=== PATIENT | male | born 1970 | race Caucasian/White ===

== ENCOUNTER 2017-10-05 15:30 | Outpatient (CLI) | payer BC | END 2017-10-05 15:31 | disposition home or self-care (01) | LOC: BICMRI 15:30 | PROVIDERS: ATTEND Family Medicine | DX: M47.26 Other spondylosis with radiculopathy, lumbar region (principal); M51.16 Intervertebral disc disorders with radiculopathy, lumbar region | CPT/HCPCS: 72148 ==

== ENCOUNTER 2018-01-27 15:58 | Outpatient (CLI) | payer BC ==
[2018-01-27 17:21] LABS: Hemoglobin 15.1 g/dL (14.0-18.0); Mean Corpuscular HGB CONC 35.1 g/dL (32.0-36.0); Mean Corpuscular Hemoglobin 28.9 pg (27.0-31.0); Mean Corpuscular Volume 82.2 fL (78.0-98.0); Mean Platelet Volume 7.2 fL (7.4-10.4); Platelet Count 224 thou/uL (130-400); RBC Distribution Width 12.4 % (11.5-14.5); Red Blood Cell (RBC) Count 5.23 mill/uL (4.70-6.10)
[2018-01-27 17:30] LABS: PTT 26.2 SEC (22.9-36.1); Prothrombin Time 13.4 SEC (12.0-14.7)
== END 2018-01-27 15:59 | disposition home or self-care (01) ==
LOC: LABBT 15:58
PROVIDERS: ATTEND Neurological Surgery
DX: Z01.812 Encounter for preprocedural laboratory examination (principal); M51.26 Other intervertebral disc displacement, lumbar region
CPT/HCPCS: 85027; 85610; 85730

== ENCOUNTER 2018-01-28 09:56 | Day surgery (SDC) | payer BC ==
[2018-01-27 16:16] VITALS: BMI 29.5
--- NOTE | 2018-01-28 09:01 | HP ---
CHIEF COMPLAINT: Neck pain. HISTORY OF PRESENT ILLNESS: Mr. Fernandes is a 47-year-old male who presents to our office with low back pain and radiating pain to the left buttock and numbness, tingling into the left L5 dermatome. He has had his pain since 04/2017 that came on spontaneously. The pain has caused him much discomfort in his job and is affecting his daily life. He has good strength in bilateral EHL and TA. He is able to walk with analgesic gait. He has not had any physical therapy; however, he has had some injections and has been started on Lyrica. Patient states that he has modified his activity and still has the pain on the left side. Patient states that at the end of the workday, it is the worse quality of life, is not improving. The patient denies any bowel or bladder incontinence. REVIEW OF SYSTEMS: Ten point review of systems has been completed and is otherwise negative as stated above in the HPI. PAST MEDICAL HISTORY: Allergic rhinitis, sinus infections, hyperlipidemia, kidney function decline, GFR in the 60s in 2017, radiculopathy and compression on MRI. SURGICAL HISTORY: Left knee surgery, sinus surgery. FAMILY HISTORY: Father is at age 82 diagnosed with high blood pressure and cancer. Mother is at 68 diagnosed with high blood pressure, heart disease, stroke, and cancer. Siblings are alive. Children are alive. SOCIAL HISTORY: The patient is a nonsmoker, uses alcohol occasionally and does not use any other illicit drugs. He is , sexually active with his . Drinks caffeine regularly, ice tea and occupation, [employer]. MEDICATIONS: Flonase, loratadine, atorvastatin, calcium, Ambien, prednisone, meloxicam, and tramadol. ALLERGIES: No known drug allergies. PHYSICAL EXAMINATION: HEAD EARS, NOSE AND THROAT: Normocephalic, atraumatic. Hearing is intact. Moist mucous membranes. Trachea is midline. No masses noted. EYES: Pupils are equal, round, reactive to light. Extraocular movements are intact. Sclerae is not injected. No icterus. PSYCHIATRIC: Normal mood and affect. PULMONARY: Normal work of breathing room air. CARDIOVASCULAR: Regular rate and rhythm. MUSCULOSKELETAL: Lower extremities, 5/5 strength, bilateral iliopsoas, quadriceps, hamstrings, right tibialis anterior, and EHL. Sensory defect in left L5 dermatome, tender to palpate the midline spine. NEUROLOGIC: Awake, alert. Cranial nerves II-XII are grossly intact. Speech is fluent. Answers questions appropriately, analgesic gait and station. Reflexes are normal, patellar and Achilles, no clonus. MRI left L4-L5 herniated disk compressing L5 nerve root. ASSESSMENT AND PLAN: Intervertebral disk disorder with radiculopathy, lumbar L4 -L5. Dr. Torres has offered a left L4-L5 microdiskectomy. An informed consent, we have discussed the indications, risks, benefits, alternatives, and expected results from surgery. The risks discussed included, but are not limited to bleeding, infection, CSF leak, nerve damage, weakness, incontinence, cauda equina injury, arachnoiditis, paralysis, ventilator dependence, wheelchair dependence, loss of vision, cardiopulmonary complications of anesthesia, or . Long-term complications discussed included, but are not limited to, spinal instability and the need for further surgery. He understands the risks and is willing to move forward with surgery. THIAGO
[2018-01-28] MEDS ORDERED: CEFAZOLIN/Water 2 GM/20 ML SYRINGE ONE ×3 (10:31→18:26)
[2018-01-28] MEDS ORDERED: Sodium Chloride 0.9% 10 ML ONE (13:53)
[2018-01-28] MEDS ORDERED: Bupivacaine HCl 0.5%/Epinephrine 1:200,000/PF 30 ml Vial ONE (13:53)
[2018-01-28] MEDS ORDERED: Thrombin 5000 UNITS/5 ML VIAL ONE (13:53)
[2018-01-28] MEDS ORDERED: Fentanyl 100 MCG/2 ML VIAL ONE ×2 (14:41→16:48)
[2018-01-28] MEDS ORDERED: Tamsulosin HCl 0.4 MG CAP ONE (16:30)
[2018-01-28] MEDS ORDERED: HYDROcodone/Acetaminophen 5/325 mg Tablet ONE ×2 (18:22→18:23)
--- NOTE | 2018-01-29 00:20 | OP ---
DATE OF PROCEDURE: 01/28/2018 SURGEON: Brooke Torres M.D. HASH SLINGER: Elen Baez PA-C. PREOPERATIVE INDICATION: Treat pain, prevent neurological deterioration. PREOPERATIVE DIAGNOSIS: Left L4-L5 intervertebral disk herniation with left L5 radiculopathy. POSTOPERATIVE DIAGNOSIS: Left L4-L5 intervertebral disk herniation with left L5 radiculopathy. OPERATIVE PROCEDURE: Left partial hemilaminectomy, medial facetectomy, foraminotomy and microdiskect yelena, operative microscope. PREOPERATIVE MEDICATIONS: Ancef 2 grams IV. DRAIN NUMBER: Zero. DRAIN TYPE: None. OPERATIVE DICTATION: The patient was brought to the operating room. General endotracheal anesthesia was induced. The patient was positioned prone on-gel filled chest rolls and a lateral fluoro radiog raph was used to plan our incision. Lumbar skin was sterilely prepped and draped. We opened with a 10 blade knife and controlled bleeding with bipolar cautery. We used monopolar cautery to dissect th rough subcutaneous tissues to the thoracodorsal fascia. We incised the fascia left of the midline an d we reflected the paraspinal muscles off the spinous process and lamina of L4 and L5. Self-retainin g retractor was placed and a lateral fluoro radiograph confirmed the levels upon which we were operat ing. We then used bone rongeurs including Steely and Kerrisons to fashion a partial hemilaminectomy and medial facetectomy. The yellow ligament was removed and the operative microscope was brought int o the field. Under microscopic magnification and using microsurgical techniques, we performed more medial facetect yelena and performed a foraminotomy over the L5 nerve root and then we mobilized the L5 nerve root in th e ventral epidural space by gently retracting it medially over a large disk protrusion. We controlle d the epidural veins with gentle bipolar cautery. We entered the disk sharply and removed disk sapphire nts using curettes and rongeurs. There was one loose fragment of new disk herniation that came out a s a single piece. There was a mound of some partially calcified disk in the lateral epidural space a s well and that was reduced swept laterally and brought out in a piecemeal fashion. At the com pletion of our diskectomy, all the remaining disk in between the vertebral bodies was firmly adherent to the endplates. The L5 nerve root had no more stretch on it and it was well decompressed circumfe rentially. We irrigated copiously with bacitracin irrigation. We infused local anesthetic in the pa raspinal muscles and we closed in anatomic layers. We applied a sterile dressing. This was a clean case and no contamination.
== END 2018-01-28 20:10 | disposition home or self-care (01) ==
LOC: SDC 09:56
PROVIDERS: ATTEND Neurological Surgery
PROC: 0SB20ZZ Excision of Lumbar Vertebral Disc, Open Approach (ICD-10-PCS; principal; 2018-01-28)
PROC: 01NB0ZZ Release Lumbar Nerve, Open Approach (ICD-10-PCS; principal; 2018-01-28)
DX: M51.16 Intervertebral disc disorders with radiculopathy, lumbar region (principal); E78.5 Hyperlipidemia, unspecified; Z79.899 Other long term (current) drug therapy; Z79.52 Long term (current) use of systemic steroids
CPT/HCPCS: 76001; 96374; A4216; J0670; J3010; J3370; J3490

== ENCOUNTER 2021-02-10 08:28 | Outpatient (CLI) | payer BC ==
[2021-02-10 19:28] LABS: SARS-CoV-2 PCR by NAA Not Detected (NotDetected)
== END 2021-02-10 08:29 | disposition home or self-care (01) ==
LOC: LABBT 08:28
PROVIDERS: ATTEND Specialist
DX: Z01.818 Encounter for other preprocedural examination (principal); J35.01 Chronic tonsillitis; J35.1 Hypertrophy of tonsils; J34.2 Deviated nasal septum; J34.3 Hypertrophy of nasal turbinates; G47.33 Obstructive sleep apnea (adult) (pediatric); Z20.822 Contact with and (suspected) exposure to COVID-19
CPT/HCPCS: 93005; 93010; U0003; U0005